=== PATIENT | male | born 1950 | race Caucasian/White ===

== ENCOUNTER 2023-05-09 10:18 | Inpatient (IN) | payer MEDICARE, OTHER ==
[~2023-05-09] VITALS: Ht 175.3 cm; Wt 92.7 kg
[2023-05-09 11:20] LABS: Basophils # (auto) 0.1 10 ^3/uL (0-0.2); Basophils % (auto) 0.7 % (0.0-2.0); Eosinophils # (auto) 0.6 10 ^3/uL (0-0.8); Eosinophils % (auto) 5.8 % (0.0-7.0); Hematocrit 41.3 % (41.0-53.0); Hemoglobin 13.5 g/dL (13.5-17.5); Lymphocytes # (auto) 1.5 10 ^3/uL (0.4-5.4); Lymphocytes % (auto) 14.7 % (10.0-50.0); Mean Corpuscular Hemoglobin 29.7 pg (28.0-32.0); Mean Corpuscular Hgb Conc. 32.6 g/dL (32.0-36.0); Mean Corpuscular Volume 91.3 fL (80.0-100.0); Monocytes # (auto) 0.9 10 ^3/uL (0-1.3); Monocytes % (auto) 8.9 % (0.0-12.0); Neutrophils # (auto) 6.9 10 ^3/uL (1.6-8.6); Neutrophils % (auto) 69.9 % (37.0-80.0); Red Blood Cells 4.52 10^6/uL (4.5-5.90); Red Cell Distribution Width 14.3 % (11.8-14.3); White Blood Cell 9.9 10^3/uL (4.4-10.8)
[2023-05-09 11:56] LABS: Chloride 108 mmol/L (98-107); Potassium 3.7 mmol/L (3.5-5.1); Sodium 145 mmol/L (136-145)
[2023-05-09 11:57] LABS: Anion Gap 8 (5-15); Calcium 9.5 mg/dL (8.5-10.1); Carbon Dioxide 29 mmol/L (20-30)
[2023-05-09 12:02] LABS: BUN/Creatinine Ratio 13.2 (10.0-20.0); Blood Urea Nitrogen 14 mg/dL (9-23); Glucose 71 mg/dL (74-106)
[2023-05-09] MEDS ORDERED: DEXTROSE (50%) 50ML SYRG IV PRN (12:30)
[2023-05-09] MEDS: ALBUTEROL SULF 2.5 MG/0.5ML(0.5%) NEB SOLN NEB PRN (12:49)
[2023-05-09] MEDS: IPRATROPIUM BROM 0.5 MG/2.5ML INH SOL NEB ONE (12:49)
[2023-05-09] MEDS ORDERED: GABA-1250 PO (12:59)
[2023-05-09] MEDS ORDERED: METF-370 PO (12:59)
[2023-05-09] MEDS ORDERED: TAMS0.4C36 PO (12:59)
[2023-05-09] MEDS ORDERED: TERA1CAP52 PO (12:59)
[2023-05-09] MEDS ORDERED: PANT40TA57 PO (12:59)
[2023-05-09] MEDS ORDERED: INSU100I25 SC (12:59)
[2023-05-09] MEDS ORDERED: ATOR40TA52 PO (12:59)
[2023-05-09] MEDS ORDERED: ALBU108A5 PO (12:59)
[2023-05-09] MEDS ORDERED: NITROGLYCERIN 0.4 MG SL TAB SL PRN (13:00)
[2023-05-09] MEDS ORDERED: ACETAMINOPHEN 325 MG TAB PO PRN (13:00)
[2023-05-09] MEDS ORDERED: SODIUM CHLORIDE 0.9% 1,000 ML IV SCH (13:00)
[2023-05-09] MEDS ORDERED: MORPHINE SULFATE INJ 2 MG/ml SYRG IV PRN (13:00)
[2023-05-09] MEDS ORDERED: ONDANSETRON HCL 4 MG/2 ML VIAL IV PRN (13:00)
[2023-05-09 14:05] LABS: INR 1.06 (0.9-1.15); Prothrombin Time 11.1 sec (9.3-11.8)
[2023-05-09 14:08] LABS: Urine Bacteria NONE SEEN /hpf (None Seen); Urine Blood Negative /uL (Negative); Urine Clarity Clear (Clear); Urine Color Yellow (Yellow); Urine Protein, UAD Negative (Negative); Urine Specific Gravity 1.019 (1.001-1.035); Urine Urobilinogen Normal (Negative); Urine WBC 1 /hpf (0 - 3); Urine pH 7.5 (5.0-8.0)
[2023-05-09 15:24] VITALS: BP 147/77; PULSE 85; RESP 16; TEMP 98.6; O2SAT 97
[2023-05-09] MEDS: SOD CHL 0.45% 1,000 ML IV SCH (15:34)
[2023-05-09] MEDS: methylPREDNISolone SOD SUCC 125 MG/2 ML VL IV ONE (15:34)
[2023-05-09 15:50] LABS: Rapid Influenza A Negative (Negative); Rapid Influenza B Negative (Negative)
[2023-05-09 15:51] LABS: COVID19 ANTIGEN SOFIA FIA NEGATIVE (NEGATIVE)
[2023-05-09 16:35] VITALS: PULSE 83; RESP 17; O2SAT 95
[2023-05-09] MEDS: InsuLIN REG 1unit/0.01ml Soln (100units/ml) SC SCH (17:00)
[2023-05-09] MEDS: ACCU-CHEK COMFORT CURVE STRIP VI SCH (17:20)
[2023-05-09 20:00] VITALS: PULSE 86; RESP 18; O2SAT 95
[2023-05-09 21:00] VITALS: BP 136/92; PULSE 69; RESP 17; TEMP 98.3; O2SAT 95
[2023-05-09] MEDS: ATORVASTATIN 20 MG TAB PO SCH (22:38)
[2023-05-09] MEDS: GABAPENTIN 300 MG CAP PO SCH (22:38)
[2023-05-09] MEDS: metFORMIN HYDROCHLORIDE 500 MG TAB PO SCH (22:39)
[2023-05-10] VITALS (13 sets, daily range): BP systolic 96–127; BP diastolic 68–90; PULSE 67–100; RESP 16–18; TEMP 97.8–98.8; O2SAT 91–98
[2023-05-10] MEDS: INFLUENZA QUAD 2023-2024 0.5 ML SYRG IM ONE (05:38)
[2023-05-10 06:28] LABS: Alanine Aminotransferase 63 U/L (7-40); Albumin 4.2 g/dL (3.2-4.8); Alkaline Phosphatase 56 U/L (46-116); Anion Gap 8 (5-15); Aspartate Aminotransferase 64 U/L (13-40); BUN/Creatinine Ratio 15.6 (10.0-20.0); Bilirubin, Total 0.8 mg/dL (0.2-1.0); Blood Urea Nitrogen 15 mg/dL (9-23); Calcium 9.7 mg/dL (8.5-10.1); Carbon Dioxide 25 mmol/L (20-30); Chloride 108 mmol/L (98-107); Glucose 123 mg/dL (74-106); Potassium 4.2 mmol/L (3.5-5.1); Sodium 141 mmol/L (136-145)
[2023-05-10 06:29] LABS: Basophils # (auto) 0 10 ^3/uL (0-0.2); Basophils % (auto) 0.2 % (0.0-2.0); Eosinophils # (auto) 0 10 ^3/uL (0-0.8); Eosinophils % (auto) 0.1 % (0.0-7.0); Hematocrit 40.8 % (41.0-53.0); Hemoglobin 13.4 g/dL (13.5-17.5); Lymphocytes # (auto) 1.5 10 ^3/uL (0.4-5.4); Lymphocytes % (auto) 12.2 % (10.0-50.0); Mean Corpuscular Hemoglobin 29.8 pg (28.0-32.0); Mean Corpuscular Hgb Conc. 32.7 g/dL (32.0-36.0); Mean Corpuscular Volume 90.9 fL (80.0-100.0); Neutrophils # (auto) 9.9 10 ^3/uL (1.6-8.6); Neutrophils % (auto) 79.5 % (37.0-80.0); Red Blood Cells 4.49 10^6/uL (4.5-5.90); Red Cell Distribution Width 14.2 % (11.8-14.3); White Blood Cell 12.5 10^3/uL (4.4-10.8)
[2023-05-10 08:15] LABS: CRP High Sensitivity 0.21 mg/dL (<1.0)
[2023-05-10 09:17] LABS: Magnesium 1.8 mg/dL (1.6-2.6)
[2023-05-10] MEDS: TAMSULOSIN HYDROCHLORIDE 0.4 MG CAP PO SCH (09:17)
[2023-05-10] MEDS: TERAZOSIN HCL 1 MG CAP PO SCH (09:18)
[2023-05-10] MEDS: PANTOPRAZOLE 40 MG TAB PO SCH (09:19)
[2023-05-10] MEDS: ENOXAPARIN SOD 40 MG/0.4 ML SYRINGE SC SCH (09:19)
[2023-05-10 10:14] LABS: Hepatitis B Surface Antigen Negative (Negative)
[2023-05-10] MEDS ORDERED: DEXTROSE (50%) 50ML SYRG IV PRN (11:15)
[2023-05-10] MEDS: ACCU-CHEK COMFORT CURVE STRIP VI SCH (11:30)
[2023-05-10] MEDS: InsuLIN REG 1unit/0.01ml Soln (100units/ml) SC SCH (11:30)
[2023-05-10 13:26] LABS: Hepatitis C Antibody Reactive (Negative)
[2023-05-10] MEDS ORDERED: IPRATROPIUM BROM 0.5 MG/2.5ML INH SOL NEB PRN (14:00)
[2023-05-10] MEDS ORDERED: ALBUTEROL SULF 2.5 MG/0.5ML(0.5%) NEB SOLN NEB PRN (14:00)
[2023-05-10] MEDS: methylPREDNISolone SOD SUCC 40 MG/ML VL IV ONE (14:30)
[2023-05-10] MEDS: guaiFENesin-DM 100/10mg/5ml SYR PO PRN (14:30)
[2023-05-10] MEDS ORDERED: INSU1INJ19 SC (16:06)
[2023-05-11 00:36] VITALS: BP 114/68; PULSE 75; RESP 14; TEMP 98.4; O2SAT 97
[2023-05-11 05:00] VITALS: BP 125/74; PULSE 69; RESP 18; TEMP 98.3; O2SAT 98
[2023-05-11 06:27] LABS: Basophils # (auto) 0 10 ^3/uL (0-0.2); Basophils % (auto) 0.2 % (0.0-2.0); Eosinophils # (auto) 0 10 ^3/uL (0-0.8); Eosinophils % (auto) 0.1 % (0.0-7.0); Hematocrit 41.8 % (41.0-53.0); Hemoglobin 13.6 g/dL (13.5-17.5); Lymphocytes # (auto) 2.3 10 ^3/uL (0.4-5.4); Lymphocytes % (auto) 17.3 % (10.0-50.0); Mean Corpuscular Hemoglobin 29.9 pg (28.0-32.0); Mean Corpuscular Hgb Conc. 32.6 g/dL (32.0-36.0); Mean Corpuscular Volume 91.7 fL (80.0-100.0); Monocytes # (auto) 1.5 10 ^3/uL (0-1.3); Monocytes % (auto) 11.1 % (0.0-12.0); Neutrophils # (auto) 9.5 10 ^3/uL (1.6-8.6); Neutrophils % (auto) 71.3 % (37.0-80.0); Nucleated Red Blood Cells % 0.1 %; Red Blood Cells 4.56 10^6/uL (4.5-5.90); White Blood Cell 13.4 10^3/uL (4.4-10.8)
[2023-05-11 06:50] LABS: Alanine Aminotransferase 62 U/L (7-40); Albumin 4.2 g/dL (3.2-4.8); Alkaline Phosphatase 56 U/L (46-116); Anion Gap 4 (5-15); Aspartate Aminotransferase 51 U/L (13-40); Bilirubin, Total 0.7 mg/dL (0.2-1.0); Blood Urea Nitrogen 12 mg/dL (9-23); Calcium 9.6 mg/dL (8.7-10.4); Carbon Dioxide 28 mmol/L (20-30); Chloride 109 mmol/L (98-107); Glucose 96 mg/dL (74-106); Potassium 3.9 mmol/L (3.5-5.1); Sodium 141 mmol/L (136-145)
[2023-05-11 07:30] VITALS: O2SAT 98
[2023-05-11 08:00] VITALS: PULSE 73
[2023-05-11 08:32] VITALS: BP 139/79; PULSE 71; RESP 16; TEMP 97.8; O2SAT 98
[2023-05-11] MEDS: methylPREDNISolone SOD SUCC 40 MG/ML VL IV SCH (09:21)
[2023-05-11] MEDS ORDERED: PRED20TA2 PO (09:47)
[2023-05-11] MEDS ORDERED: UMEC1AER IN (09:47)
[2023-05-11] MEDS ORDERED: DEXT1SYP9 PO (09:47)
[2023-05-11] MEDS: PNEUMOCOCCAL VACC POLYS 25 MCG/0.5 ML VIAL IM ONE (11:05)
== END 2023-05-11 12:57 | disposition home or self-care (01) | DRG 140 ==
LOC: ER 10:18 → TELE 12:56 → TELE-WESTW 18:48
PROVIDERS: ADMIT Internal Medicine; ATTEND Internal Medicine
DX: J44.1 Chronic obstructive pulmonary disease with (acute) exacerbation (principal); J96.20 Acute and chronic respiratory failure, unspecified whether with hypoxia or hypercapnia; B19.20 Unspecified viral hepatitis C without hepatic coma; E11.9 Type 2 diabetes mellitus without complications; D72.828 Other elevated white blood cell count; E66.9 Obesity, unspecified; J98.11 Atelectasis; I10 Essential (primary) hypertension; N40.0 Benign prostatic hyperplasia without lower urinary tract symptoms; Z20.822 Contact with and (suspected) exposure to COVID-19; R74.01 Elevation of levels of liver transaminase levels; T38.0X5A Adverse effect of glucocorticoids and synthetic analogues, initial encounter; Y92.89 Other specified places as the place of occurrence of the external cause; Z87.891 Personal history of nicotine dependence; Z68.30 Body mass index [BMI] 30.0-30.9, adult
CPT/HCPCS: 36415; 71045; 71250; 76705; 80048; 80053; 80061; 81001; 82105; 82962; 83036; 83605; 83735; 83880; 84443; 84484; 85025; 85379; 85610; 86141; 86703; 86803; 87340; 87426; 87804; 90686; 93005; 93306; 93970; 94640; G0378; J1815